=== PATIENT | female | born 1965 | race Caucasian/White ===

== ENCOUNTER 2024-05-13 04:30 | Emergency (ER) | payer BC, SELFPAY ==
[2024-05-13] VITALS (8 sets, daily range): BP systolic 121–155; BP diastolic 64–100; PULSE 62–77; RESP 18–20; TEMP 36.8; O2SAT 96–98; BMI 27.5
--- OUTSIDE RECORDS SUMMARY | 2024-05-13 04:32 | XMS_ITS | Clinical Summary ---
Author Organization [facility] Address [address] [place] [id number] Care Team Providers Care Maintenance Manager Name Role Phone Kathy Khan APRN C.N.P. Primary Care Pro vider Source Comments Patient records contain information from all sites at [facility]. For routine questions regarding patient records, call [phone] during business hours, M-F 8:00 AM - 5:00 PM Central Time. Record requests for emergency care only can be directed to [phone] at any time.[facility] Allergies Active Allergy Reactions Criticality Noted Date Comments Penicillins Hives (Reselect Reaction) 5 Medications acetaminophen (TylenoL) 500 mg tablet Take 2 tablets (1,000 mg total) by mouth every 6 (six) hours as needed for pain. 10/27/2023 Active zknbxnpg-fga-sp rrous sulfate (One Daily Multi-Vit w-Mineral) 4.5 mg iron tablet Take by mouth daily. 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 Immunizations Immunization Administration Dates Next Due HepA Adult 10/07/2013 HepB (discontinued) adolesce nt/high risk infant 01/16/2002,10/10/2001 HepB Adult 12/04/2002,01/16/2002,10/10/2001 HepB, Unspecified 12/04/2002 Influenza, Injectable, Quadrivalent 04/24/2023(D eferred: Parental decision) Td (Adult), adsorbed 01/05/2010 Td, (Adult) Unspecified 01/05/2010,04/10/1998 Tdap 04/24/2023(Deferred: Patient boo lewis) Family History Medical History Relation Name Comments Encephalitis Brother 1 Drug addict Brother 2 No Known Problems Daughter Anemia Father Diabetes Father Colon polyps Mother Diabetes Mother Fatty liver Mother Coronary artery disease Paternal Grandfather Breast cancer (cancer in one breast) Paternal Grandmot her No Known Problems Son 1 No Known Problems Son 2 No Known Problems Son 3 Relation Name Status Comments Brother 1 Brother 2 Daughter Father Mother Alive Paternal Grandfather Paternal Grandmother Son 1 Son 2 Son 3 Social History Tobacco Use Types Packs/Day Years Used Date Smoking Tobacco: Never Passive Smoke Exposure: Never Smokeless Tobacco: Never Tobacco Cessation:Counseling Given: Not Answered Alcohol Use Standard Drinks/Week Comments Yes 0 (1 standard drink = 0.6 oz pur e alcohol) Rare [facility] Utilities Answer Date Recorded In the past 12 months has e Patient Home Monitoring, gas, oil, or water Marqui threatened to shut off services in your home? No 05/30/2023 PHQ-2 Answer Date Recorded PHQ-2 Score 0 04/24/2023 Exercise Vital Sign Answer Date Recorde d On average, how many days pe r week do you engage in moderate to strenuous exercise (like a brisk walk)? 7 days 05/30/2023 On average, how many minutes do you engage in exercise at this level? 60 min 05/30/2023 Hunger Vital Sign Answer Date Recorded Within the past 12 months, y ou worried that your food would run out before you got the money to buy more. Never true 05/30/19 24 Within the past 12 months, t he food you bought just didn't last and you didn't have money to get more. Never true 05/30/2023 PRAPARE - Transportation Answer Date Re corded In the past 12 months, has l ack of transportation kept you from medical appointments or from getting medications? No 07/2023 In the past 12 months, has l ack of transportation kept you from meetings, work, or from getting things needed for daily living? No 05/30/2023 Nutrition Answer Date Recorded On average, how many serving s of fruits and vegetables do you eat per day (serving size is equal to 1 cup or approximately the size of a tennis ball)? 0-2 05/30/2023 Dental Answer Date Recorded Dental: Regular Dentist Yes 05/30/19 Employment Answer Date Recorded Employment status Employed and actively working without restrictions 05/30/2023 Housing Stability Answer Date Recorded What is your living situation today? I have a [facility] place to live 05/30/2023 Comments No Sex and Gender Information Value Date Recorded Sex Assigned at Female 05/30/2023 1:55 PM SCHEDULING ASSISTANT Legal Sex Female 8:18 AM SCHEDULING ASSISTANT Gender Identity Female 05/30/2023 1:55 PM SCHEDULING ASSISTANT Sexual Orientation Straight 05/30/2023 1: 55 PM SCHEDULING ASSISTANT Last Filed Vital Signs Vital Sign Reading Time Taken Comments Blood Pressure 130/82 12/05/2023 8:41 AM CDT Pulse 71 12/11/2023 9:49 AM CDT Temperature 36.8 C (98.2 F) 12/11/2023 9:49 AM CDT Respiratory Rate 20 12/05/2023 8:41 AM CDT Oxygen Saturation 96% 12/11/2023 9:49 AM CDT Inhaled Oxygen Concentration - - Weight 70.8 kg (156 lb 1.4 oz) 11/30/2023 11:09 AM CDT Height 162.6 cm (5' 4) 11/16/2023 8:08 AM CDT Body Mass Index 26.79 11/16/2023 8:08 AM CDT Plan of Treatment Health Maintenance Due Date Last Done Comments CT Colonography 1964 Cologuard 1965 HIV Screening 1965 Hepatitis C Screening 1965 DTaP,Tdap,and Td Vaccines (1 - Tdap) 01/06/2010 01/05/2010, 01/05/2010, 04/10/1998 Pneumococcal vaccine (50+ years) (1 of 1 - PCV) 01/23/2014 Zoster Vaccines (1 of 2) 01/23/2014 COVID-19 Vaccine (1 - season) 2023 Influenza Vaccine (#1) 2023 Depression Screening (Annual PHQ-2) 03/27/2024 Mammogram 11/12/2024 11/13/2023, 08/0 03/2021, 03/28/2019, Additional history exists Fasting Glucose for Diabetes Screening 10/09/2026 10/10/2023, 04/24/2023, 02/27/2018, Additional history exists Cervical/Vaginal Cancer Screening 04/24/2028 04/24/2023, 04/24/2023, 02/27/2018, Additional history exists Lipid (Cholesterol) Screening 04/24/2028 04/24/2023, 03/01/2019, 10/02/2013 (Performed elsewhere) Colonoscopy 11/15/2028 11/16/2023, 03/12/2018 Colorectal Cancer Surveillance 11/15/2028 Hepatitis B Vaccines Completed 12/04/2002, 12/04/2002, 01/16/2002, Additional history exists IPV Vaccines Aged Out No longer eligi ble based on patient's age to complete this topic Procedures Procedure Name Priority Date/Time Associated Diagnosis Comments COLONOSCOPY Routine 11/16/2023 8:49 AM CDT Screening Colon Cancer Average Risk BI BREAST SCREENING BILATERAL WITH TOMOSYNTHESIS RAD - Routine (most inpatients and all outpatients) 11/13/2023 2:33 PM CDT Screening Mammogram Breast Cancer BASIC METABOLIC PANEL, S/P Routine 10/10/2023 4:10 PM CDT Carpal Tunnel Syndrome Right Preoperative Exam LIPID PANEL, S Routine 04/24/2023 3:43 PM SCHEDULING ASSISTANT Well Adult Examination Normal HPV WITH GENOTYPING, PCR, THINPREP Routine 04/24/2023 3:43 PM SCHEDULING ASSISTANT from Last 3 Months or Most Recently Relevant to Health Maintenance Results * BI Breast Screening Bilateral with Tomosynthesis (11/13/2023 2:33 PM CDT) Anatomical Region Laterality Modality Breast, Breast Imaging RST L OS, Breast Imaging ARZ LOS, Breast Imaging FLA LOS Bilateral Mammography Impressions 11/13/2023 3:34 PM CDT Negative. RECOMMENDATION: Screening as Clinically Appropriate ASSESSMENT: BI-RADS: 1: Negative. Narrative 11/13/2023 3:34 PM CDT EXAM: BI BREAST SCREENING BILATERAL WITH TOMOSYNTHESIS Current study was evaluated with a Computer Aided Detection (CAD) system. INDICATION: Screening mammogram. COMPARISON: Prior exam(s) were available and reviewed for comparison. DENSITY: b. There are scattered areas of fibroglandular density. FINDINGS: No findings of malignancy. No significant change since prior exam. Procedure Note Kasi Clayton M.D. - 11/13/2023 EXAM: BI BREAST SCREENING BILATERAL WITH TOMOSYNTHESIS Current study was evaluated with a Computer Aided Detection (CAD) system. INDICATION: Screening mammogram. COMPARISON: Prior exam(s) were available and reviewed for comparison. DENSITY: b. There are scattered areas of fibroglandular density. FINDINGS: No findings of malignancy. No significant change since priorexam. IMPRESSION: Negative. RECOMMENDATION: Screening as Clinically Appropriate ASSESSMENT: BI-RADS: 1: Negative. Kathy Khan APRN, C.N.P. IMG BI PROCEDURES Final Result * (ABNORMAL) Basic Metabolic Panel (10/10/2023 4:10 PM CDT) Potassium, P 3.9 3.6 - 5.2 mmol/L 10/10/2023 7:32 PM CDT NPRG Sodium, P 141 135 - 145 mmol/L 10/10/2023 7:32 PM CDT NPRG Chloride, P 104 98 - 107 mmol/L 10/10/2023 7:32 PM CDT NPRG Bicarbonate, P 26 22 - 29 mmol/L 10/10/2023 7:33 PM CDT NPRG Anion Gap, P 11 7 - 15 10/10/2023 7:32 PM CDT NPRG BUN (Blood Urea Nitrogen), P 19 6 - 21 mg/dL 10/10/2023 7:33 PM CDT NPRG Creatinine 0.58(L) 0.59 - 1.04 mg/dL 10/10/2023 7:33 PM CDT NPRG Estimated GFR (eGFR) >90 >=60 mL/min/BSA 10/10/2023 7:33 PM CDT NPRG Comment: Estimated GFR calculated using the 2020 CKD_EPI creatinine equation. Calcium, Total, P 9.7 8.6 - 10.0 mg/dL 10/10/2023 7:33 PM CDT NPRG Glucose, P 106 70 - 140 mg/dL 10/10/2023 7:33 PM CDT NPRG Blood (Blood, Venous) 10/10/2023 4:10 PM CDT 10/10/2023 7:05 PM CDT Kathy Khan APRN, C.N.P. LAB BLOOD ADD-ON Final Result [facility] [address] [place] [address], [place] NPRG [facility] [address] [place] [address] * (ABNORMAL) Lipid Panel (04/24/2023 3:43 PM SCHEDULING ASSISTANT) Triglycerides 231(H) mg/dL 04/24/2023 7:31 PM SCHEDULING ASSISTANT NPRG Comment: ----REFERENCE VALUE---- Normal: <150 mg/dL Borderline High: 150-199 mg/dL High: 200-499 mg/dL Very High: > or =500 mg/dL Cholesterol, Total 199 mg/dL 2023 7:31 PM SCHEDULING ASSISTANT NPRG Comment: ----REFERENCE VALUE---- Desirable: < 200 mg/dL Borderline High: 200 - 239 mg/dL High: > or = 240 mg/dL Cholesterol, LDL, Calculated 113 mg/dL 04/24/2023 7:31 PM SCHEDULING ASSISTANT NPRG Comment: ----REFERENCE VALUE---- Desirable: <100 mg/dL Above Desirable: 100-129 mg/dL Borderline High: 130-159 mg/dL High: 160-189 mg/dL Very High: >=190 mg/dL ----ADDITIONAL INFORMATION---- LDL cholesterol calculated using the Parrish/NIH equation. Cholesterol, HDL 46(L) >=50 mg/dL 04/24/19 7:31 PM SCHEDULING ASSISTANT NPRG Cholesterol, Non-HDL, Calculated 153 mg/dL 04/24/2023 7:31 PM SCHEDULING ASSISTANT NPRG Comment: ----REFERENCE VALUE---- Desirable: <130 mg/dL Above Desirable: 130-159 mg/dL Borderline High: 160-189 mg/dL High: 190-219 mg/dL Very High: > or =220 mg/dL Fasting (8 HR or more) No 04/24/2023 7:09 PM SCHEDULING ASSISTANT NPRG Blood (Blood, Venous) 04/24/2023 3:43 PM SCHEDULING ASSISTANT 04/24/2023 7:09 PM SCHEDULING ASSISTANT Kathy Khan APRN, C.N.P. LAB BLOOD ADD-ON Final Result [facility] [address] [place] [address], [facility] NPRG [facility] [address] [place] [address] * HPV with Genotyping, PCR, ThinPrep (04/24/2023 3:43 PM SCHEDULING ASSISTANT) [facility] HPV with Genotyping, ThinPrep, PCR Negative Negative 04/25/2023 3:14 PM SCHEDULING ASSISTANT MKTO Comment: Negative for high risk HPV by nucleic acid amplification. The following high risk HPV types were not detected: 16, 18, 31, 33, 35, 39, 45, 51, 52, 56, 58, 59, 66, and 68 This result does not rule out HPV in the patient, as the sensitivity of the test depends on the timing of the specimen collection and the quality of the specimen. Result should be correlated with patient's history, clinical presentation, and REGISTRY NP cytology report. 04/24/2023 3:43 PM SCHEDULING ASSISTANT 04/25/2023 6:11 AM SCHEDULING ASSISTANT Kathy Khan APRN, C.N.P. LAB MICROBIOLOGY - GENERAL ORDERABLES Final Result [facility] [address] [place] [address], [facility] MKTO [address] [address] from Last 3 Months or Most Recently Relevant to Health Maintenance Insurance [employer] Advance Directives For more information, please contact: [phone] * Full Code (Latest Code Status on File) Date Activated Date Inactivated Comments 11/16/2023 7:44 AM 11/17/2023 5:49 AM Question Answer Comments Full Code: Not Discussed Due to: Patient not available * Full Code Date Activated Date Inactivated Comments 03/12/2018 12:49 PM 03/12/2018 4:12 PM Question Answer Comments Full Code: Not Discussed Due to: Not medically appropriate Care Teams Maintenance Manager Relationship Specialty Start Date End Date Kathy Khan APRN, C.N.P. [address] [place], [place] [id number] PCP - General Family Medicine 01/18/18
--- OUTSIDE RECORDS SUMMARY | 2024-05-13 04:32 | XMS_ITS | Continuity of Care Document ---
Author Organization [place] - [facility] [place] [facility] Address [address] [place] [id number] Assessment Encounter Date Assessment Date Assessment LastModified by Organization Details LastModified Time 05/02/2024 05/02/2024 Informed the patient of her diagnosis as detailed down below. At this time she was informed that in regards to her stress reaction this has responded very well with the use of her CAM boot and she will be allowed to return to normal shoegear at this time. She was informed that she likely developed this stress response secondary to compensation regarding her ankle instability that we will treat with PT after some initial treatment (Eleuterio, referral sent today). Additionally I recommended that the patient discuss with her PCP regarding undergoing a bone scan at this time secondary to evidence of osteopenia on radiographs. Will be seen back a few weeks after PT for a recheck. [email or web address] Not available 05/03/2024 12:01:30 Plan of Treatment Reminders Order Date Submit Date Provider Last Modified By Organization Details Last Modified Time Details Appointments None record ed. Lab None record ed. Referral None record ed. Procedures None record ed. Surgeries None record ed. Imaging None record ed. Medication Orders None record ed. Patient TargetsNo targets recorded. Patient InstructionsNo instructions recorded. Reason for Referral None Reported. Results Created Date Observation Date Name Description Value Unit Range Abnormal Flag Note LastModifiedBy Organization Detail LastModifiedTime 04/19/19 25 XR, foot, 3 or more view No observ ation record ed. [email or web address] [place] [facility] [address] [place] [address], [place], [address], 04/19/2024 10:53:32 04/19/19 25 XR, ankle , 2 view No observ ation record ed. [email or web address] [place] [facility] [address], [place], [address], 04/19/2024 10:54:06 Result Notes None recorded. 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 Medical Equipment None Reported. Allergies Allergen ID Allergen Name Allergen Category Reaction Reaction Severity Criticality Documentation Date Start Date Code Code System Note Provider Name and Address Organization Details Recorded Time 24193 Penicilli n Not available Not available Not available Not available 05/31/2022 98342 RxNorm Comme nt: React ion Class : Aller gy Al lergy Ident ifier : 3 All ergy Categ ory: Aller gy Categ ories Iden tifie r Assig keisha Autho rity: [address] _[place]_F [place] ; Not Available [facility] 3 08:52:25 Medications Name Sig Start Date Stop Date Status Note LastModified by Organization Details LastModified Time mupirocin 2 % topical ointment active Not Available Not Available Not Available oxycodone 5 mg tablet active Not Available Not Available No t Available peg 3350-electro lytes 236 gram-22.74 gram-6.74 gram-5.86 gram solution active Not Available Not Available Not Available Vitals None Recorded Social History None recorded. Functional Status None recorded. Mental Status None recorded. Family History Nothing Reported. Medical History No medical history recorded. Gynecological HistoryNo gynecological history recorded. Obstetrics History GPAL:G 0 P 0 0 0 0 Past Encounters Encounter ID Performer Location Encounter Start Date Encounter Closed Date Diagnosis/Indication Diagnosis SNOMED-CT Code Diagnosis ICD10 Code Diagnosis Note [id number] Mayo Salazar DPM [place] [facility] [address] [place] [phone] 04/18/2024 15:27:51 04/19/2024 11:56:15 Stress fracture of metatarsal bone of right foot [id number] 2615930 M84.374A Chronic an kle instability 634805732 M25.371 Osteopenia 145316584 M85 .879 [id number] Mayo Salazar DPM [place] [facility] [address] [place] [phone] 05/02/2024 15:53:11 05/03/2024 12:48:52 Chronic ankle instability 855742559 M25.371 Osteopenia 665115644 M85 .879 Health Concerns Section Related Observation LastModified by Organization Detai ls LastModified Time None Recorded Concern Status LastModified by Organization Details LastModified Time None Recorded Payers Encounter Date Sequence Insurance Name Policy Number Policy Main Covered Member ID Main Member ID Guarantor Name 05/02/2024 1 [facility] Chloé Sanchez [id number] Chloé Sanchez Notes Date Note Type Note Provider Name and Address Organization Details Recorded Time 05/02/2024 text/html Patient is a 59 year old female established patient who presents to clinic today for a recheck of right sided foot pain. The patient was previously informed about her diagnosis of chronic ankle instability in addition to the start of a stress fracture to the 4th metatarsal base. She was given a CAM boot to wear at home and she mentions that she has noticed a reduction in foot pain since her initial symptoms with the use of the CAM boot. Presents today for further discussion. Mayo Salazar GILMA [address] [place], [address], [facility] 05/03/2024 12:01:36 OBGyn Episode No OBEpisode recorded.
--- OUTSIDE RECORDS SUMMARY | 2024-05-13 04:32 | XMS_ITS | Clinical Summary ---
Author Organization [facility] Address [place], [place] [address] Care Team Providers Care Elastic Tape Inserter Name Role Phone Pcp, No Primary Care Provider Unavailabl e Allergies Active Allergy Reactions Criticality Noted Date Comments Penicillins Hives 06/16/2006 Medications ibuprofen (ADVIL; MOTRIN) 800 mg tabletIndicati ons:Hallux valgus, right Take 1 tablet by mouth 3 times daily with meals. 40 tablet 1 9 Active HYDROcodone-ac etaminophen, 5-325 mg, (NORCO) per tabletIndicati ons:Hallux valgus, right Take 1-2 tablets by mouth every 4 hours if needed for Pain Max acetaminophen dose: 4000 mg in 24 hrs. 30 tablet 9 Active Surgical ShoeIndication s:Hallux valgus, right For home use. 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 Pain in joint, site unspecified 06/16/2006 Immunizations Name Administration Dates Next Due Hepatitis A (Adult) 10/07/2013 Hepatitis B (Adult) 12/04/2002,01/16/2002,2001 Td (Age >=7 Years) 01/05/2010,04/10/1998 Family History Medical History Relation Name Comments Blood Disease Father SIDEROBLASTIC ANEMIA Diabetes Father Heart Disease Paternal Grandfather Cancer-breast Paternal Grandmother Diabetes Paternal Grandmother Relation Name Status Comments Brother 1 Alive Brother 2 Alive Daughter Alive Father Maternal Grandfather Maternal Grandmother Mother Alive Paternal Grandfather Paternal Grandmother Son 1 Alive Son 2 Alive Son 3 Alive Social History Tobacco Use Types Packs/Day Years Used Date Smoking Tobacco: Never Smokeless Tobacco: Never Alcohol Use Standard Drinks/Week Comments Yes 0 (1 standard drink = 0.6 oz pur e alcohol) rare Comments No Sex and Gender Information Value Date Recorded Sex Assigned at Not on file Legal Sex Female 5:22 AM AGRICULTURAL EXTENSION OFFICER Gender Identity Not on file Sexual Orientation Not on file Occupation Industry Job Start Date Job End Date TANIYA Not on file Not on file Not on file Not on file Not on file Not on file Not on file Obstetrics History Para Term AB IAB SAB Ectopic Multiple Livin g Live Births 4 4 4 Date Outcome GA Total Labor Labor/2nd/3rd Weight Sex Type Anes PTL Tracie A1 A5 Name Clin Para Para Para Para Last Filed Vital Signs Vital Sign Reading Time Taken Comments Blood Pressure 116/72 04/10/2018 1:10 PM AGRICULTURAL EXTENSION OFFICER Pulse 70 04/10/2018 1:10 PM AGRICULTURAL EXTENSION OFFICER Temperature 36.4 C (97.6 F) 04/10/2018 12:10 PM AGRICULTURAL EXTENSION OFFICER Respiratory Rate 16 04/10/2018 1:10 PM AGRICULTURAL EXTENSION OFFICER Oxygen Saturation 99% 04/10/2018 1:10 PM AGRICULTURAL EXTENSION OFFICER Inhaled Oxygen Concentration - - Weight 78 kg (171 lb 14.4 oz) 04/10/2018 9:30 AM AGRICULTURAL EXTENSION OFFICER Height 162.6 cm (5' 4.02) 04/10/2018 9:30 AM CS T Body Mass Index 29.49 04/10/2018 9:30 AM AGRICULTURAL EXTENSION OFFICER Plan of Treatment Health Maintenance Due Date Last Done Comments Tdap 01/23/1975 Depression screening for age 12+ 1976 HIV for age 15-65 01/23/1979 BMI (ht and wt on same day) for age 18+ 01/23/1982 Hepatitis C screening for ag e 18-79 01/23/1982 Colonoscopy through age 75 01/23/2009 Pneumococcal series for age 50+ (1 of 1 - PCV) 01/23/2014 Zoster (shingles) series for age 50+ (1 of 2) 01/23/2014 Mammogram for age 45-75 10/07/2014 10/08/19 14, 10/01/2012, 10/01/2012, Additional history exists Pap test for age 21-65 10/02/2015 3, 10/01/2012, 09/26/2011, Additional history exists Lipids for age 45-75 10/02/2018 10/02/2013, 09/21/2011, 09/13/2010 (Postponed) Tetanus booster 01/06/2020 01/05/2010, 04/10/1998 COVID-19 vaccine series ( - 2023-25 season) 2023 Influenza for age 50-64 11/26/2023 RSV vaccine for adults or (1 - 1-dose 75+ series) 01/23/2039 Medical Devices Implanted Type Area Publications Production Supervisor Device Identifier Shelf Expiration Date Model / Serial / Lot Screw Bone 3.0x16mm Mini Headed - [id number] Implanted:Qty : 2 on 04/10/2018 by Jf Franco DPM at [facility]Scre[employer] s [employer] Plates Right: Foot [employer] [id number] / / 2.5mm Headed Screw Implanted:Qty : 1 on 02/13/2018 by Jf Franco DPM at [facility] Left: [employer] [id number] / / 3.0mm Headed Screw Implanted:Qty : 1 on 02/13/2018 by Jf Franco DPM at [facility] Left: Foot [employer] [id number] / / Explanted Type Area Publications Production Supervisor Device Identifier Shelf Expiration Date Model / Serial / Lot K-Wire 3.0mm [employer]-Thrd - [id number] Explanted:Qty : 2 on 04/10/2018 by Jf Franco DPM at [facility]Screw s & Plates Right: [employer] [id number] / / Procedures Procedure Name Priority Date/Time Associated Diagnosis Comments XR MAMMO BILAT SCREEN FFDM (IA) Routine 10/07/2013 8:37 AM CDT Other screening mammogram LIPID PANEL Routine 10/02/2013 8:04 AM CDT Lipid screening CLOTH MERCERIZER OPERATOR THIN PREP PAP SCREEN IMAGED Routine 10/01/2012 2:41 PM CDT Pap smear for cervical cancer screening from Last 3 Months or Most Recently Relevant to Health Maintenance Results * XR MAMMO BILAT SCREEN FFDM (10/07/2013 8:37 AM CDT) Anatomical Region Laterality Modality BREASTS, Breast Left, Breast Right Bilateral Mammography Impressions 10/08/2013 7:31 AM CDT There is no radiographic evidence for malignancy. Recommend annual mammograms. A lay language report of this examination will be provided to the patient. MAMMOGRAM ASSESSMENT: ACR 2 Benign Narrative 10/08/2013 7:31 AM CDT XR MAMMO BILAT SCREEN FFDM [G0202.0] CLINICAL HISTORY: This is an asymptomatic 48 y.o. patient. INDICATION FOR EXAM: Mammogram Screening. TECHNIQUE: CC & MLO views were obtained. This digital study was evaluated with the assistance of Computer-Aided Detection. COMPARISON FILMS: Yes 10/01/12 [facility] DIAGNOSTIC IMAGING FINDINGS: Mammographically, the breast tissue is heterogeneously dense, which could obscure detection of small masses (approximately 51% - 75% glandular). No suspicious masses or microcalcifications. Benign appearing asymmetry within both breasts. Procedure Note Sudhir Lara MD - 10/08/2013 XR MAMMO BILAT SCREEN FFDM [G0202.0] CLINICAL HISTORY: This is an asymptomatic 48 y.o. patient. INDICATION FOR EXAM: Mammogram Screening. TECHNIQUE: CC & MLO views were obtained. This digital study was evaluatedwith the assistance of Computer-Aided Detection. COMPARISON FILMS: Yes 10/01/12 [facility] DIAGNOSTIC IMAGING FINDINGS: Mammographically, the breast tissue is heterogeneously dense,which could obscure detection of small masses (approximately 51% - 75%glandular). No suspicious masses or microcalcifications. Benignappearing asymmetry within both breasts. IMPRESSION: There is no radiographic evidence for malignancy. Recommendannual mammograms. A lay language report of this examination will be provided to the patient. MAMMOGRAM ASSESSMENT: ACR 2 Benign Tru Johnson MD MAMMO Final Result * (ABNORMAL) LIPID PANEL (10/02/2013 8:04 AM CDT) CHOLESTEROL,TOTAL 248(H) 100 - 199 mg/dL 10/02/2013 9:38 AM CDT [facility] TRIGLYCERIDES 190(H) <150 mg/dL 10/02/2013 9:38 AM CDT [facility] HDL CHOLESTEROL 52 >40 mg/dL 4 9:38 AM CDT [facility] NON-HDL CHOLESTEROL 196(H) <145 mg/dl 10/02/2013 9:38 AM CDT [facility] CHOL/HDL RATIO 4.77(H) <4.50 10/02/2013 9:38 AM CDT [facility] LDL CHOLESTEROL 158(H) <=130 mg/dL 10/02/2013 9:38 AM CDT [facility] PATIENT STATUS FASTING 10/02/2013 9:38 AM CDT [facility] Blood specimen (specimen) BLOOD SPECIMEN / Unknown Venipuncture / Unknown 10/02/2013 8:04 AM CDT 10/02/2013 8:04 AM CDT Tru Johnson MD CHEMISTRY Final Result [facility] [address] [place] [address], [place] [phone] * CLOTH MERCERIZER OPERATOR THIN PREP PAP SCREEN IMAGED (10/01/2012 2:41 PM CDT) CYTOLOGY CYTOPATHOLOGY REPORT [facility] Status: Final Status [id number] CLINICAL INFORMATION Last Date of LMP :09/13/2012 Last Pap Date :09/26/2011 Last Pap Result :NIL ABN Wilson/Bx Past 5 YRS :None Hormone Usage :None Menstrual Status :Regular Periods Wilson/Bx done today :No Additional Information :None given HPV Request :HPV if ASCUS SPECIMEN SOURCE :Cervical/vaginal ThinPrep Vial, screening SPECIMEN ADEQUACY :Satisfactory for evaluation No endocervical component seen. INTERPRETATION/RES ULT Negative for intraepithelial lesion or malignancy (NIL) Non-Neoplastic Findings Hyperkeratosis Organisms Shift in fabricio suggestive of bacterial vaginosis EDUCATIONAL NOTES AND SUGGESTIONS For technical reasons this ThinPrep Pap could not be screened by the Sharepoint Application Developer so it was manually screened. Cytology 1st Screener :cam Signed by : Jonathan Dorsey M.D. This specimen was screened by the FDA approved ThinPrep Imaging System and manually reviewed. NOTE: The Pap test is a screening technique, not a diagnostic procedure. It is used primarily to screen for squamous cancers and precursor lesions. Published studies have shown that it is subject to both false negative and false positive results. The pap test should not be used as the sole means to diagnose or exclude pre-malignant and malignant lesions. COLLECTED:10/01/12 ACCESSIONED: 10/02/12 SIGNED: 10/05/12 [facility] P[facility] [place] CODE NIL [facility] Tissue specimen (specimen) (Cervical/Vagina l) 10/01/2012 2:41 PM CDT 10/01/2012 2:39 PM CDT Tru Johnson MD PATHOLOGY/CYTOLOGY Final Resul t [facility] INTERNAL ZIP [id number] [place] [id number] from Last 3 Months or Most Recently Relevant to Health Maintenance Insurance [facility] NON-VA-ITS BLUE CROSS OF NON-VA-ITS Advance Directives * Full Code (Latest Code Status on File) Date Activated Date Inactivated Comments 04/10/2018 8:34 AM 04/10/2018 3:23 PM * Full Code Date Activated Date Inactivated Comments 02/13/2018 6:54 AM 02/13/2018 1:00 PM Care Teams Elastic Tape Inserter Relationship Specialty Start Date End Date Pcp, No . PCP - General 02/13/18
--- OUTSIDE RECORDS SUMMARY | 2024-05-13 04:32 | XMS_ITS | Continuity of Care Document ---
Author Organization ID - [facility] [place] Office Address [address] [place] [phone] Assessment Encounter Date Assessment Date Assessment LastModified by Organization Details LastModified Time 04/18/2024 04/18/2024 Informed the patient of her diagnosis as detailed down below. At this time she was informed that she has a possible stress fracture to the right 4th metatarsal and I would recommend that she wears a short pneumatic CAM boot (non custom, pre fabricated, dispensed today by our clinic) for protected ambulation. She was informed that she likely developed this stress response secondary to compensation regarding her ankle instability that we will treat with PT after some initial treatment ([place]). Additionally I recommended that the patient discuss with her PCP regarding undergoing a bone scan at this time secondary to evidence of osteopenia on radiographs. [email or web address] Not available 04/19/2024 10:56:08 Plan of Treatment Reminders Order Date Submit Date Provider Last Modified By Organization Details Last Modified Time Details Appointments None record ed. Lab None record ed. Referral None record ed. Procedures None record ed. Surgeries None record ed. Imaging XR, foot, 3 or more view 025 04/19/19 25 [facility], [address] [place] [address], [phone], 5 11:56:15 XR, ankle, 2 view 025 04/19/19 25 [facility], [address] [place] [address], [phone], 5 11:56:16 Medication Orders None record ed. Patient TargetsNo targets recorded. Patient InstructionsNo instructions recorded. Reason for Referral None Reported. Results Created Date Observation Date Name Description Value Unit Range Abnormal Flag Note LastModifiedBy Organization Detail LastModifiedTime 04/19/19 25 XR, foot, 3 or more view No observ ation record ed. [address] [place], [address], 04/19/2024 10:53:32 04/19/19 25 XR, ankle , 2 view No observ ation record ed. [address] [place], [address], 04/19/2024 10:54:06 Result Notes None recorded. 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; Original Code: 015552758 Original Codesystem : SNOMED CT Classif ication: Medical Co nfirmation Status: Confirmed Not Available [facility] 3 08:52:01 Plantar fascial fibromato sis 20938752 Active 2013 Plantar Fasciitis; Original Code: 728.71 Matthieu ginal Codesystem : ICD-9-CM C lassificat ion: Medical Co nfirmation Status: Confirmed Not Available [facility] 3 08:52:01 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 Procedures Surgical History None recorded. Imaging Results Imaging Date Name Status LastModified by Organiz ation Details LastModified Time 04/19/2024 XR, foot, 3 or more view completed [address] [place] [address] [address] [place], [address], 04/19/2024 10:53:32 04/19/2024 XR, ankle, 2 view completed [address] [place] [address] [address] [place], [id number], 04/19/2024 10:54:06 Procedure Notes None recorded. Medical Equipment None Reported. Allergies Allergen ID Allergen Name Allergen Category Reaction Reaction Severity Criticality Documentation Date Start Date Code Code System Note Provider Name and Address Organization Details Recorded Time 21899 Penicilli n Not available Not available Not available Not available 05/31/2022 99541 RxNorm Comme nt: React ion Class : Aller gy Al lergy Ident ifier : 3 All ergy Categ ory: Aller gy Categ ories Iden tifie r Assig keisha Autho rity: [id number] _[place]_F [place] ; Not Available [facility] 08:52:25 Medications Name Sig Start Date Stop Date Status Note LastModified by Organization Details LastModified Time mupirocin 2 % topical ointment active Not Available Not Available Not Available oxycodone 5 mg tablet active Not Available Not Available No t Available peg 3350-electro lytes 236 gram-22.74 gram-6.74 gram-5.86 gram solution active Not Available Not Available Not Available Vitals Date Recorded Body height Body mass index (BMI) Body weight Provider Name and Address Organization Details Last Updated DateTime 04/18/2024 162.56 cm 27.5 kg/m2 73025.78 g Ayaka Perez [place] - [facility] 04/18/2024 15:36:44 Social History None recorded. Functional Status None recorded. Mental Status None recorded. Family History Nothing Reported. Medical History No medical history recorded. Gynecological HistoryNo gynecological history recorded. Obstetrics History GPAL:G 0 P 0 0 0 0 Past Encounters Encounter ID Performer Location Encounter Start Date Encounter Closed Date Diagnosis/Indication Diagnosis SNOMED-CT Code Diagnosis ICD10 Code Diagnosis Note [id number] Mayo Salazar, DPPhilip [place] [facility] [address] [place] [address] [place] [address] 04/18/2024 15:27:51 04/19/2024 11:56:15 Stress fracture of metatarsal bone of right foot 4709334758 8493567 M84.374A Chronic an kle instability 943381559 M25.371 Osteopenia 856705529 M85 .879 Health Concerns Section Related Observation LastModified by Organization Detai ls LastModified Time None Recorded Concern Status LastModified by Organization Details LastModified Time None Recorded Payers Encounter Date Sequence Insurance Name Policy Number Policy Main Covered Member ID Main Member ID Guarantor Name 04/18/2024 1 [facility] Chloé Sanchez [id number] Chloé Sanchez Notes Date Note Type Note Provider Name and Address Organization Details Recorded Time 04/18/2024 text/html Patient is a 59 year old female new patient who presents to clinic today for evaluation of right foot pain. 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 Endorses that she has started experiencing sharper pain this last week and presents today for further cares. Mayo Salazar, GILMA [address] [place], [address], [facility] - [facility] 04/19/2024 10:56:32 OBGyn Episode No OBEpisode recorded.
--- OUTSIDE RECORDS SUMMARY | 2024-05-13 04:32 | XMS_ITS | Data Portability ---
Author Organization [place] - [facility] [employer] Address [address] [place] [address] Assessment Encounter Date Assessment Date Assessment LastModified [...] treat with PT after some initial treatment ([place]). Additionally I recommended that the patient discuss with her PCP regarding undergoing a bone scan at this time secondary to evidence of osteopenia on radiographs. [email or web address] Not available 04/19/2024 10:56:08 05/02/2024 05/02/2024 Informed the patient of her [...] few weeks after PT for a recheck. [email or web address] Not available 05/03/2024 12:01:30 Plan of Treatment Reminders Order Date Submit Date Provider Last Modified By Organization Details Last Modified Time Details Appointments None record ed. Lab None record ed. Referral None record ed. Procedures None record ed. Surgeries None record ed. Imaging XR, foot, 3 or more view 025 04/19/19 25 [facility], [address] [place] [address], [phone], 5 11:56:15 XR, ankle, 2 view 025 04/19/19 25 [facility], [address] [place] [address], [phone], 5 11:56:16 Medication Orders None record ed. Patient TargetsNo targets recorded. Patient InstructionsNo instructions recorded. Reason for Referral None Reported. Results Created Date Observation Date Name Description Value Unit Range Abnormal Flag Note LastModifiedBy Organization Detail LastModifiedTime 04/19/19 25 XR, foot, 3 or more view No observ ation record ed. [address], [address], 04/19/2024 10:53:32 04/19/19 25 XR, ankle , 2 view No observ ation record ed. [address], [address], 04/19/2024 10:54:06 Result Notes None recorded. Problems Name Problem SNOMED Code Status Onset Date Resolution Date Notes Provider Name and Address Organization Details Recorded Time Toe joint rigid 408150472 Active 2020 Toe joint rigid; Original Code: 966906645 Original Codesystem : SNOMED CT Classif ication: Medical Co nfirmation Status: Confirmed Not Available [facility] 3 08:52:01 Plantar fascial fibromato sis 02064670 Active 2013 Plantar Fasciitis; Original Code: 728.71 Matthieu ginal Codesystem : ICD-9-CM C lassificat ion: Medical Co nfirmation Status: Confirmed Not Available [facility] 3 08:52:01 Congenita l anomaly of foot 139391766 Active 2013 Accessory Navicular Bone of Foot; Original Code: 755.67 Matthieu ginal Codesystem : ICD-9-CM C lassificat ion: Medical Co nfirmation Status: Confirmed Not Available [facility] 3 08:52:02 Obesity 936705469 Active 2016 Obesity; Original Code: 6027448747 Original Codesystem : SNOMED CT Classif ication: Medical Co nfirmation Status: Probable Not Available [facility] 3 08:52:02 Problem Notes None recorded. Procedures Surgical History None recorded. Imaging Results Imaging Date Name Status LastModified by Organiz ation Details LastModified Time 04/19/2024 XR, foot, 3 or more view completed [address] [place], [address], 04/19/2024 10:53:32 04/19/2024 XR, ankle, 2 view completed [address] [place], [address], 04/19/2024 10:54:06 Procedure Notes None recorded. Medical Equipment None Reported. Allergies Allergen ID Allergen Name Allergen Category Reaction Reaction Severity Criticality Documentation Date Start Date Code Code System Note Provider Name and Address Organization Details Recorded Time 34494 Penicilli n Not available Not available Not available Not available 05/31/2022 14776 RxNorm Comme nt: React ion Class : Aller gy Al lergy Ident ifier : 3 All ergy Categ ory: Aller gy Categ ories Iden tifie r Assig keisha Autho rity: [id number] _[place]_F [place] ; Not Available [facility] 3 08:52:25 Medications Name Sig Start [...] Updated DateTime 04/18/2024 162.56 cm 27.5 kg/m2 03423.78 g Ayaka Perez [place] - [facility] 04/18/2024 [...] SNOMED-CT Code Diagnosis ICD10 Code Diagnosis Note [id number] EVGENY Hampton [employer] Office [address] [place] [address] 04/18/2024 15:27:51 04/19/2024 11:56:15 Stress fracture of metatarsal bone of right foot 1374375751 9188376 M84.374A Chronic an kle instability 348837875 M25.371 Osteopenia 426800171 M85 .879 62604 EVGENY Hampton [employer] [facility] [address] [place] [address] 05/02/2024 15:53:11 05/03/2024 12:48:52 Chronic ankle instability 577732556 M25.371 Osteopenia 165133313 M85 .879 Health Concerns Section Related Observation LastModified by Organization Detai ls LastModified Time None Recorded Concern Status LastModified by Organization Details LastModified Time None Recorded Advance Directives Directive None Recorded Payers Encounter Date Sequence Insurance Name Policy Number Policy Main Covered Member ID Main Member ID Guarantor Name 04/18/2024 1 SONDRA Sanchez [id number] Chloé Sanchez 05/02/2024 1 SONDRA Sanchez [id number] Chloé Sanchez Notes Date Note Type Note Provider Name and Address Organization Details Recorded Time 04/18/2024 text/html Patient is a 59 year old female new patient who presents to clinic today for evaluation of right foot pain. 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 Endorses that she has started experiencing sharper pain this last week and presents today for further cares. Mayo Salazar, GILMA [address] [place], [address], [facility] - [facility] 04/19/2024 10:56:32 05/02/2024 text/html Patient is a 59 year [...] Presents today for further discussion. Mayo Salazar DPM [address] [place], [address], [facility] - [facility] 05/03/2024 12:01:36 OBGyn Episode No OBEpisode recorded.
--- NOTE | 2024-05-13 04:58 | ED_ITS ---
HPI - Syncope General Date Seen: 05/13/24 Chief Complaint: Syncope/Fainted Stated Complaint: fainted Time Seen by Provider: 05/13/24 04:48 Source: patient, family and RN notes reviewed Mode of arrival: wheelchair Limitations: no limitations History of Present Illness HPI narrative: Patient is a 59-year-old female who presents here to the emergency room after being on OB in having a spell occur. She was sitting down, and then woke up, stiffened and passed out. No tonic clonic activity was noted, she reports that now she is back to baseline just feeling a little tired. She remembers in the past she did have an episode of passing out, and today she admits to not drinking a lot of fluids, and her urine is very dark. She was watching her Daughters water break when this occurred. No significant past medical history, denies any cardiac or lung problems, no history of anemia. No family history of anyone having sudden , recurrent syncope. Cardiovascular issues No history of chest pain, exertional dyspnea or exertional chest pain, leg swelling, recent trips, hemoptysis, fevers chills, sickness, headaches, vomiting nausea diarrhea, dysuria frequency, rashes. complaint: loss of consciousness and collapsed Onset (ago): minute(s) Duration of episode: 1 -: minutes(s) Prodromal symptoms: none Witnessed: Yes - by Bystander Context: at rest and standing up Injuries sustained associated with event: none Current symptoms: lightheaded and nausea Related Data Home Medications ?Medication ?Instructions ?Recorded ?Confirmed No Known Home Medications 05/13/24 05/13/24 Allergies Allergy/AdvReac Type Severity Reaction Status Date / Time Penicillins Allergy Mild Hives Verified 05/13/24 04:42 Review of Systems Status of ROS: Reports: 10 or more systems reviewed and unremarkable except as noted in History and below Cardio: Reports: other (Patient able to walk 4 mi she says on the treadmill without stopping. No ) PFSH [facility] Medical History No significant past medical history Surgical History History of section ?Z98.891 - History of uterine scar from previous surgery (ICD-10) History of tubal ligation ?Z98.51 - Tubal ligation status (ICD-10) Social History Smoking Status: Never smoker Second hand tobacco smoke exposure: No How often do you have a drink containing alcohol: never AUDIT-C Alcohol total score: 0 Non-prescribed substance use: denies use Exam Narrative: Exam Narrative: On examination in room 5 she is in no apparent distress speaking to me normally she looks very pale, pupils equal round reactive to light there is no scleral icterus redness or TMs are normal her oropharynx is normal, her neck is supple full range of motion, cranial nerves 3-12 are normal is no lymphadenopathy anterior posterior chains there is no meningismus, chest is good air entry bilaterally with no wheezing crackles noted her heart sounds no clicks murmurs or gallops her abdomen is soft there is no guarding no organomegaly bowel sounds are normal she moves all extremities independently well with fine motor movements, that are normal bilaterally, her proximal distal muscle strength is normal skin reveals no petechiae rashes. They did do orthostatics and she promptly became nauseous, Const: Vital Signs, click to edit/add: Vital Signs - 24 hr 05/13/24 04:38 05/13/24 04:48 05/13/24 04:48 Temperature 98.2 F 98.2 F Pulse Rate Pulse Rate [Right Pulse Oximeter] 67 62 Pulse Rate [orthos tatic lying Pulse Oximeter] Pulse Rate [orthos tatic sitting Puls e Oximeter] Pulse Rate [orthos tatic standing Pul se Oximeter] Respiratory Rate 18 18 Blood Pressure Blood Pressure [Ri ght Upper Arm] 135/74 129/80 Blood Pressure [or thostatic lying Ri ght Arm] Blood Pressure [or thostatic sitting Right Arm] Blood Pressure [or thostatic standing Right Arm] Pulse Oximetry 98 98 98 Oxygen Delivery Me thod Room Air Room Air 05/13/24 05:04 05/13/24 05:05 05/13/24 05:19 Temperature Pulse Rate 70 Pulse Rate [Right Pulse Oximeter] Pulse Rate [orthos tatic lying Pulse Oximeter] 71 75 Pulse Rate [orthos tatic sitting Puls e Oximeter] 69 69 Pulse Rate [orthos tatic standing Pul se Oximeter] 75 71 Respiratory Rate 20 Blood Pressure 124/73 Blood Pressure [Ri ght Upper Arm] Blood Pressure [or thostatic lying Ri ght Arm] 121/64 155/100 H Blood Pressure [or thostatic sitting Right Arm] 123/74 123/74 Blood Pressure [or thostatic standing Right Arm] 155/100 H 121/64 Pulse Oximetry 96 Oxygen Delivery Me thod Documenting provider has reviewed patient's vital signs: yes Course Course ED Course: She is not truly orthostatic, with her measurements. By blood pressure. I wonder if this is more of a vasovagal thing, could not rule out a dysrhythmia but I think also that is unlikely. Potassium is borderline at 3.4, Reevaluation(s) Time of Reevaluation #1: 06:03 Reevaluation #1: Patient has received a full L of fluids, she feels better, she remains in sinus rhythm on the monitor. Her potassium returned little low we will give her both oral and IV bumps of this. I discussed with her, I think this is more of a vasovagal issue, she was clinically a little dry, and this was been borne out by her urine being concentrated, the other issue is her long QT syndrome, and I would recommend follow-up with Cardiology for a check. She has never before had an EKG, no family history to suggest that this is familial. Avoidance of QT prolonging medications such as Zofran and psychiatric medications is suggested. She did take a picture of the EKG show she can take it to her primary care physician. I explained to her the protocol is we will recheck her troponin, and her EKG if this is normal we will then let her go. She likely will be signed over to the oncoming ER physician. Time of Reevaluation #2: 06:45 Reevaluation #2: Patient feels good, and her daughter is having the baby as we speak, and she is requesting to leave the ER, we will do a troponin here quickly, she will still be in the hospital I think it is reasonable we let her go we will track her down it becomes positive, I went with over with her the discharge instructions. Vital Signs Vital signs: Initial Vital Signs Temperature 98.2 F 05/13/24 04:38 Temperature Source Temporal Artery Scan 05/13/24 04:38 Pulse Rate 67 05/13/24 04:38 Pulse Rhythm Regular 05/13/24 04:38 Pulse Strength 3+ Normal 05/13/24 04:38 Respiratory Rate 18 05/13/24 04:38 Blood Pressure 135/74 05/13/24 04:38 Blood Pressure Mean 94 05/13/24 04:38 Blood Pressure Position Sitting 05/13/24 04:38 Pulse Oximetry 98 05/13/24 04:38 Oxygen Delivery Method Room Air 05/13/24 04:38 Vital Signs Temperature 98.2 F 05/13/24 04:38 Pulse Rate 67 05/13/24 04:38 Respiratory Rate 18 05/13/24 04:38 Blood Pressure 135/74 05/13/24 04:38 Pulse Oximetry 98 05/13/24 04:38 Oxygen Delivery Method Room Air 05/13/24 04:38 Temperature 98.2 F 05/13/24 04:48 Pulse Rate 70 05/13/24 05:19 Respiratory Rate 20 05/13/24 05:19 Blood Pressure 124/73 05/13/24 05:19 Pulse Oximetry 96 05/13/24 05:19 Oxygen Delivery Method Room Air 05/13/24 04:48 Medications Administered Medications: Generic Name Dose Route Start Last Admin Trade Name Freq PRN Reason Stop Dose Admin Potassium Chloride 10 meq in 100 mls @ 100 mls/hr 05/13/24 05:49 05/13/24 05:53 Potassium Chloride IVPB 05/13/24 06:48 100 mls/hr ONCE ONE Administration Discontinued Medications Generic Name Dose Route Start Last Admin Trade Name Freq PRN Reason Stop Dose Admin Sodium Chloride 1,000 mls @ 1,000 mls/hr 05/13/24 05:00 05/13/24 05:56 0.9 % Sodium Chloride 1000 Ml IV 05/13/24 05:59 Infused .Q1H JOAQUIN Infusion Sodium Chloride 1,000 mls @ 1,000 mls/hr 05/13/24 05:00 05/13/24 05:02 0.9 % Sodium Chloride 1000 Ml IV 05/13/24 05:59 1,000 mls/hr .Q1H JOAQUIN Administration Lorazepam 0.5 mg 05/13/24 05:10 05/13/24 05:18 Lorazepam 2 Mg/Ml Inj IVP 05/13/24 05:11 0.5 mg ONCE ONE Administration Potassium Chloride 20 meq 05/13/24 05:48 05/13/24 05:52 Potassium Chloride 10 Meq Capsule Er PO 05/13/24 05:49 20 meq ONCE ONE Administration MDM - Syncope MDM Narrative Medical decision making narrative: Life-threatening differential diagnosis considered include: Cardiac arrhythmia, acute blood loss, and intracranial bleed. Other differential diagnosis include but are not limited to vasovagal syncope, orthostatic syncope, seizure, as well as other etiologies Patient presents so the spell, this most likely vasovagal or orthostatic, given history, I do not think this is seizure, there is no evidence of oropharyngeal biting, incontinence of stool or urine and no seizure-like activity. Possibility of dysrhythmia is entertain, we will add in magnesium level, and also the doing a troponin. D-dimer will also be done. We will give her 2 L of fluids. Her EKG does show that she has the possibility of long QT syndrome. With her nausea that she feels now when she sits up, QT prolonging agents should be avoided, so to use a little bit Ativan. Differential Diagnosis Differential diagnosis: Likely syncope due to orthostatic hypotension, vasovagal syncope, complete atrioventricular block, subarachnoid hemorrhage, pulmonary embolism and dehydration Medical Records Attestation: I reviewed the patient's medical records. Lab Data Attestation: I reviewed the patient's lab results. Labs: Lab Results 05/13/24 05/13/24 05/13/24 Range/Units 04:35 04:43 04:45 WBC 9.87 (4.50-11.00) K/uL RBC 4.42 (4.00-5.20) m/uL Hgb 13.6 (12.0-16.0) gm/dL Hct 40.4 (33.0-51.0) % MCV 91 (80-100) fL MCH 31 (26-34) pg MCHC 34 (32-36) gm/dL RDW Coeff of Gama 12.2 (11.5-15.5) % Plt Count 305 (140-440) K/uL Neut % (Auto) 37.0 L (42.0-72.0) % Lymph % (Auto) 51.9 H (20-44) % Morrill % (Auto) 9.3 (0.0-11.0) % Eos % (Auto) 1.0 (0.0-7.0) % Baso % (Auto) 0.5 (0.0-3.0) % Neut # (Auto) 3.70 (1.7-7.0) K/uL Lymph # (Auto) 5.10 H (0.90-2.90) K/uL Morrill # (Auto) 0.90 (0.00-0.90) K/UL Eos # (Auto) 0.10 (0.00-0.50) K/uL Baso # (Auto) 0.05 (0.00-0.30) K/uL Abs Immat Gran (auto) 0.03 (0.00-0.30) K/uL Imm/Tot Granulo (auto) 0.3 % D-Dimer Quant (PE/DVT) 0.25 (0.00-0.50) ug/ml Sodium 140 (135-149) mmol/L Potassium 3.4 L (3.6-5.1) mmol/L Chloride 107 (96-114) mmol/L Carbon Dioxide 25 (20-32) mmol/L Anion Gap 8 (7-15) mEq/L BUN 16 (7-30) mg/dL Creatinine 0.5 (0.5-1.5) mg/dL Estimated Creat Clear 103.32 Estimated GFR 107 ml/min Glucose 127 H (60-115) mg/dL Calcium 9.4 (8.4-10.6) mg/dL Magnesium 2.3 (1.5-2.6) mg/dL Troponin I < 0.01 L (0.01-0.04) ng/mL Urine Color (Yellow) Urine Appearance (Clear) Urine pH (5.0-8.5) Ur Specific Mansfield (1.000-1.030) Urine Protein (Negative) Urine Glucose (UA) (Negative) Urine Ketones (Negative) Urine Blood (Negative) Urine Nitrite (Negative) Urine Bilirubin (Negative) Urine Urobilinogen (0.2-1.0) Ur Leukocyte Esterase (Negative) Urine RBC (0-2) Urine WBC (0-5) Ur Squamous Epith Cells (None-Few) Urine Bacteria (None) Urine Mucus (None) Ethyl Alcohol < 0.00 L (0.01-0.03) % 05/13/24 Range/Units 04:48 WBC (4.50-11.00) K/uL RBC (4.00-5.20) m/uL Hgb (12.0-16.0) gm/dL Hct (33.0-51.0) % MCV (80-100) fL MCH (26-34) pg MCHC (32-36) gm/dL RDW Coeff of Gama (11.5-15.5) % Plt Count (140-440) K/uL Neut % (Auto) (42.0-72.0) % Lymph % (Auto) (20-44) % Morrill % (Auto) (0.0-11.0) % Eos % (Auto) (0.0-7.0) % Baso % (Auto) (0.0-3.0) % Neut # (Auto) (1.7-7.0) K/uL Lymph # (Auto) (0.90-2.90) K/uL Morrill # (Auto) (0.00-0.90) K/UL Eos # (Auto) (0.00-0.50) K/uL Baso # (Auto) (0.00-0.30) K/uL Abs Immat Gran (auto) (0.00-0.30) K/uL Imm/Tot Granulo (auto) % D-Dimer Quant (PE/DVT) (0.00-0.50) ug/ml Sodium (135-149) mmol/L Potassium (3.6-5.1) mmol/L Chloride (96-114) mmol/L Carbon Dioxide (20-32) mmol/L Anion Gap (7-15) mEq/L BUN (7-30) mg/dL Creatinine (0.5-1.5) mg/dL Estimated Creat Clear Estimated GFR ml/min Glucose (60-115) mg/dL Calcium (8.4-10.6) mg/dL Magnesium (1.5-2.6) mg/dL Troponin I (0.01-0.04) ng/mL Urine Color Yellow (Yellow) Urine Appearance Clear (Clear) Urine pH 6.0 (5.0-8.5) Ur Specific [place] >= 1.030 (1.000-1.030) Urine Protein Trace A (Negative) Urine Glucose (UA) Negative (Negative) Urine Ketones Negative (Negative) Urine Blood Negative (Negative) Urine Nitrite Negative (Negative) Urine Bilirubin Negative (Negative) Urine Urobilinogen 0.2 (0.2-1.0) Ur Leukocyte Esterase Negative (Negative) Urine RBC 0-2 (0-2) Urine WBC 0-2 (0-5) Ur Squamous Epith Cells Few (None-Few) Urine Bacteria Few A (None) Urine Mucus Moderate A (None) Ethyl Alcohol (0.01-0.03) % ECG Data Attestation: I personally reviewed and interpreted this ECG as follows: ECG interpretation date: 05/13/24 Prior ECG tracings: not available for review Interpretation: EKG shows normal sinus rhythm, there is a prolonged QT with a QT of 458 and a QTC of 483. QRS is normal Discharge Plan Discharge Clinical Impression: Vasovagal syncope, Dehydration, Acute hypokalemia, Long QT syndrome Patient Disposition: Home w/ Parent or Adult Condition: Improved Instructions: Heart Palpitations (ED), Dehydration (DC), Potassium Content of Foods List (ED), Syncope (DC) Additional Instructions: Maintain your hydration, recommend potassium rich foods, would also recommend evaluation by Cardiology for your long QT syndrome, but just means electrical activity of your heart is different. You have had this likely your entire life. It can also be familial. This can be tied to running a funny heart rhythms, avoidance of medications such as psychiatric medications along with nausea medications probably should be avoided. It least until you follow-up with Cardiology. Return here if issues with passing out, chest pain, shortness of breath, recurrent palpitations. Bottom line see your family practitioner and discuss this. Activity Level: Light activity Discharge Diet: Regular Prescriptions: No Action No Known Home Medications Follow Up/Referrals: Kathy Khan, SCIENCE FACULTY MEMBER [Primary Care Provider] - Stand Alone Forms: [email or web address] Info Instructions
[2024-05-13 04:59] LABS: Basophils Absolute Auto 0.05 K/uL (0.00-0.30); Basophils Percent Auto 0.5 % (0.0-3.0); Hematocrit 40.4 % (33.0-51.0); Hemoglobin* 13.6 gm/dL (12.0-16.0); Immature Granulocytes Abs Auto 0.03 K/uL (0.00-0.30); Immature Granulocytes Pct Auto 0.3 %; Lymphocytes Percent Auto 51.9 % (20-44); Mean Corpuscular HGB Conc 34 gm/dL (32-36); Mean Corpuscular Hemoglobin 31 pg (26-34); Mean Corpuscular Volume 91 fL (80-100); Monocytes Percent Auto 9.3 % (0.0-11.0); Platelet Count* 305 K/uL (140-440); RDW Coefficient of Variation % 12.2 % (11.5-15.5); Red Blood Count 4.42 m/uL (4.00-5.20); White Blood Count* 9.87 K/uL (4.50-11.00)
[2024-05-13] MEDS: 0.9 % SODIUM CHLORIDE 1000 ml 1,000 ML IV ×2 (05:01→05:02)
[2024-05-13 05:08] LABS: Appearance Urine Clear (Clear); Bilirubin Urine Negative (Negative); Blood Urine Negative (Negative); Color Urine Yellow (Yellow); Glucose Urine Negative (Negative); Ketones Urine Negative (Negative); Leukocyte Esterase Urine Negative (Negative); Nitrite Urine Negative (Negative); Protein Urine Trace (Negative); Specific Gravity Urine >= 1.030 (1.000-1.030); Urobilinogen Urine 0.2 (0.2-1.0)
[2024-05-13 05:11] LABS: RBC Urine 0-2 (0-2); WBC Urine 0-2 (0-5)
[2024-05-13 05:12] LABS: Bacteria Urine Few; Mucus Urine Moderate; Squamous Epithelial Cell Urine Few (None-Few)
[2024-05-13 05:13] LABS: Slide Review Reflex No
[2024-05-13 05:18] LABS: Chloride* 107 mmol/L (96-114); Sodium* 140 mmol/L (135-149)
[2024-05-13] MEDS: LORazepam 2 MG/ML inj 0.5 MG IVP (05:18)
[2024-05-13 05:19] LABS: Potassium* 3.4 mmol/L (3.6-5.1)
[2024-05-13 05:21] LABS: Blood Urea Nitrogen* 16 mg/dL (7-30); Creatinine* 0.5 mg/dL (0.5-1.5); Est. Creatinine Clearance* 103.32; Estimated Glomerular Filt Rate 107 ml/min
[2024-05-13 05:22] LABS: Magnesium* 2.3 mg/dL (1.5-2.6)
[2024-05-13 05:22] LABS: Anion Gap 8 mEq/L (7-15); Calcium* 9.4 mg/dL (8.4-10.6); Carbon Dioxide* 25 mmol/L (20-32); Glucose* 127 mg/dL (60-115)
[2024-05-13 05:32] LABS: Ethanol* < 0.00 % (0.01-0.03)
--- OUTSIDE RECORDS SUMMARY | 2024-05-13 05:32 | XMS_ITS | Clinical Summary ---
Author Organization [facility] Address [place], [place] [address] Care Team Providers Care Yard Brakeman Name Role Phone Pcp, No Primary Care [...] on file Legal Sex Female 5:22 AM [facility] Gender Identity Not on file Sexual Orientation [...] Comments Blood Pressure 116/72 04/10/2018 1:10 PM [facility] Pulse 70 04/10/2018 1:10 PM [facility] Temperature 36.4 C (97.6 F) 04/10/2018 12:10 PM [facility] Respiratory Rate 16 04/10/2018 1:10 PM [facility] Oxygen Saturation 99% 04/10/2018 1:10 PM [facility] Inhaled Oxygen Concentration - - Weight 78 kg (171 lb 14.4 oz) 04/10/2018 9:30 AM [facility] Height 162.6 cm (5' 4.02) 04/10/2018 9:30 AM CS T Body Mass Index 29.49 04/10/2018 9:30 AM [facility] Plan of Treatment Health Maintenance Due Date [...] series) 01/23/2039 Medical Devices Implanted Type Area Oil Inspector Device Identifier Shelf Expiration Date Model / Serial / Lot Screw Bone 3.0x16mm Mini Headed - [id number] Implanted:Qty : 2 on 04/10/2018 by Jf Franco DPM at [facility] Ortho Imp.,Screw s & Plates Right: Foot [employer] [id number] / / 2.5mm Headed Screw Implanted:Qty : 1 on 02/13/2018 by Jf Franco DPM at [facility] Left: Foot [employer] [id number] / / 3.0mm Headed Screw Implanted:Qty : 1 on 02/13/2018 by Jf Franco DPM at [facility] Left: Foot [employer] [id number] / / Explanted Type Area Oil Inspector Device Identifier Shelf Expiration Date Model / Serial / Lot K-Wire 3.0mm [employer] Non-Thrd - [id number] Explanted:Qty : 2 on 04/10/2018 by Jf Franco DPM at [facility] Ortho Imp.,Screw s & Plates Right: [employer] [id number] / / Procedures Procedure Name Priority Date/Time Associated Diagnosis Comments XR MAMMO BILAT SCREEN FFDM (IA) Routine 10/07/2013 8:37 AM CDT Other screening mammogram LIPID PANEL Routine 10/02/2013 8:04 AM CDT Lipid screening JOB HONER THIN PREP PAP SCREEN IMAGED Routine 10/01/2012 [...] of Computer-Aided Detection. COMPARISON FILMS: Yes 10/01/12 [facility] DIAGNOSTIC IMAGING FINDINGS: Mammographically, the breast tissue [...] of Computer-Aided Detection. COMPARISON FILMS: Yes 10/01/12 [facility] DIAGNOSTIC IMAGING FINDINGS: Mammographically, the breast tissue [...] - 199 mg/dL 10/02/2013 9:38 AM CDT [facility] TRIGLYCERIDES 190(H) <150 mg/dL 10/02/2013 9:38 AM CDT [facility] HDL CHOLESTEROL 52 >40 mg/dL 4 9:38 AM CDT [facility] NON-HDL CHOLESTEROL 196(H) <145 mg/dl 10/02/2013 9:38 AM CDT [facility] CHOL/HDL RATIO 4.77(H) <4.50 10/02/2013 9:38 AM CDT [facility] LDL CHOLESTEROL 158(H) <=130 mg/dL 10/02/2013 9:38 AM CDT [facility] PATIENT STATUS FASTING 10/02/2013 9:38 AM CDT [facility] Blood specimen (specimen) BLOOD SPECIMEN / Unknown Venipuncture / Unknown 10/02/2013 8:04 AM CDT 10/02/2013 8:04 AM CDT Tru Johnson MD CHEMISTRY Final Result [facility] [address] [place] [address], [place] [phone] * JOB HONER THIN PREP PAP SCREEN IMAGED (10/01/2012 2:41 PM CDT) CYTOLOGY CYTOPATHOLOGY REPORT [facility] Status: Final Status [id number] CLINICAL INFORMATION Last Date of LMP :09/13/2012 Last Pap Date :09/26/2011 Last Pap Result :NIL ABN [place]/Bx Past 5 YRS :None Hormone Usage :None Menstrual Status :Regular Periods [place]/Bx done today :No Additional Information :None given HPV Request :HPV if ASCUS SPECIMEN SOURCE :Cervical/vaginal ThinPrep Vial, screening SPECIMEN ADEQUACY :Satisfactory for evaluation No endocervical component seen. INTERPRETATION/RES ULT Negative for intraepithelial lesion or malignancy (NIL) Non-Neoplastic Findings Hyperkeratosis Organisms Shift in fabricio suggestive of bacterial vaginosis EDUCATIONAL NOTES AND SUGGESTIONS For technical reasons this ThinPrep Pap could not be screened by the Auto Glass Worker so it was manually screened. Cytology 1st [...] lesions. COLLECTED:10/01/12 ACCESSIONED: 10/02/12 SIGNED: 10/05/12 [facility] PAP [place] CODE NIL [facility] Tissue specimen (specimen) (Cervical/Vagina l) 10/01/2012 2:41 PM CDT 10/01/2012 2:39 PM CDT Tru Johnson MD PATHOLOGY/CYTOLOGY Final Resul t [facility] INTERNAL ZIP [id number] [place] [id number] from Last 3 Months or Most Recently Relevant to Health Maintenance Insurance [facility] [place] Advance Directives * Full Code (Latest Code Status on File) Date Activated Date Inactivated Comments 04/10/2018 8:34 AM 04/10/2018 3:23 PM * Full Code Date Activated Date Inactivated Comments 02/13/2018 6:54 AM 02/13/2018 1:00 PM Care Teams Yard Brakeman Relationship Specialty Start Date End Date Pcp, No . PCP - General 02/13/18
--- OUTSIDE RECORDS SUMMARY | 2024-05-13 05:32 | XMS_ITS | Clinical Summary ---
Author Organization [facility] Address [address] [place] [id number] Care Team Providers Care Educational Director Name Role Phone Kathy Khan APRN C.N.P. Primary Care Pro vider Source Comments Patient records contain information from all sites at [facility]. For routine questions regarding patient records, call [phone] during business hours, M-F 8:00 AM - 5:00 PM Central Time. Record requests for emergency care only can be directed to [phone] at any time.[facility] Allergies Active Allergy Reactions Criticality Noted Date Comments Penicillins Hives (Reselect Reaction) 5 Medications acetaminophen (TylenoL) 500 mg tablet Take 2 tablets (1,000 mg total) by mouth every 6 (six) hours as needed for pain. 10/27/2023 Active yxotyayx-mkw-ks rrous sulfate (One Daily Multi-Vit w-Mineral) 4.5 [...] = 0.6 oz pur e alcohol) Rare [facility] Utilities Answer Date Recorded In the past 12 months has e [employer], gas, oil, or water [employer] threatened to shut off services in your [...] your living situation today? I have a [facility] home place to live 05/30/2023 Comments No Sex and Gender Information Value Date Recorded Sex Assigned at Female 05/30/2023 1:55 PM BUILDINGS AND GROUNDS DIRECTOR Legal Sex Female 8:18 AM BUILDINGS AND GROUNDS DIRECTOR Gender Identity Female 05/30/2023 1:55 PM BUILDINGS AND GROUNDS DIRECTOR Sexual Orientation Straight 05/30/2023 1: 55 PM BUILDINGS AND GROUNDS DIRECTOR Last Filed Vital Signs Vital Sign Reading [...] LIPID PANEL, S Routine 04/24/2023 3:43 PM BUILDINGS AND GROUNDS DIRECTOR Well Adult Examination Normal HPV WITH GENOTYPING, PCR, THINPREP Routine 04/24/2023 3:43 PM BUILDINGS AND GROUNDS DIRECTOR from Last 3 Months or Most Recently [...] APRN, C.N.P. LAB BLOOD ADD-ON Final Result [facility] [address] [place] [address], [place] NPRG [facility] [address] [place] [address] * (ABNORMAL) Lipid Panel (04/24/2023 3:43 PM BUILDINGS AND GROUNDS DIRECTOR) Triglycerides 231(H) mg/dL 04/24/2023 7:31 PM BUILDINGS AND GROUNDS DIRECTOR NPRG Comment: ----REFERENCE VALUE---- Normal: <150 mg/dL Borderline High: 150-199 mg/dL High: 200-499 mg/dL Very High: > or =500 mg/dL Cholesterol, Total 199 mg/dL 2023 7:31 PM BUILDINGS AND GROUNDS DIRECTOR NPRG Comment: ----REFERENCE VALUE---- Desirable: < 200 mg/dL Borderline High: 200 - 239 mg/dL High: > or = 240 mg/dL Cholesterol, LDL, Calculated 113 mg/dL 04/24/2023 7:31 PM BUILDINGS AND GROUNDS DIRECTOR NPRG Comment: ----REFERENCE VALUE---- Desirable: <100 mg/dL Above Desirable: 100-129 mg/dL Borderline High: 130-159 mg/dL High: 160-189 mg/dL Very High: >=190 mg/dL ----ADDITIONAL INFORMATION---- LDL cholesterol calculated using the Parrish/NIH equation. Cholesterol, HDL 46(L) >=50 mg/dL 04/24/19 7:31 PM BUILDINGS AND GROUNDS DIRECTOR NPRG Cholesterol, Non-HDL, Calculated 153 mg/dL 04/24/2023 7:31 PM BUILDINGS AND GROUNDS DIRECTOR NPRG Comment: ----REFERENCE VALUE---- Desirable: <130 mg/dL Above Desirable: 130-159 mg/dL Borderline High: 160-189 mg/dL High: 190-219 mg/dL Very High: > or =220 mg/dL Fasting (8 HR or more) No 04/24/2023 7:09 PM BUILDINGS AND GROUNDS DIRECTOR NPRG Blood (Blood, Venous) 04/24/2023 3:43 PM BUILDINGS AND GROUNDS DIRECTOR 04/24/2023 7:09 PM BUILDINGS AND GROUNDS DIRECTOR Kathy Khan APRN, C.N.P. LAB BLOOD ADD-ON Final Result [facility] [address] [place] [address], [facility] NPRG [facility] [address] [place] [address] * HPV with Genotyping, PCR, ThinPrep (04/24/2023 3:43 PM BUILDINGS AND GROUNDS DIRECTOR) [facility] HPV with Genotyping, ThinPrep, PCR Negative Negative 04/25/2023 3:14 PM BUILDINGS AND GROUNDS DIRECTOR [facility] Comment: Negative for high risk HPV [...] correlated with patient's history, clinical presentation, and [facility]ER cytology report. 04/24/2023 3:43 PM BUILDINGS AND GROUNDS DIRECTOR 04/25/2023 6:11 AM BUILDINGS AND GROUNDS DIRECTOR Kathy Khan APRN, C.N.P. LAB MICROBIOLOGY - GENERAL ORDERABLES Final Result [facility] [address] [place] [address], [facility] [address] [address] from Last 3 Months or Most Recently Relevant to Health Maintenance Insurance BLUE CROSS BLUE SHIELD Advance Directives For more information, please contact: [phone] * Full Code (Latest Code Status on File) Date Activated Date Inactivated Comments 11/16/2023 7:44 AM 11/17/2023 5:49 AM Question Answer Comments Full Code: Not Discussed Due to: Patient not available * Full Code Date Activated Date Inactivated Comments 03/12/2018 12:49 PM 03/12/2018 4:12 PM Question Answer Comments Full Code: Not Discussed Due to: Not medically appropriate Care Teams Educational Director Relationship Specialty Start Date End Date Kathy Khan APRN, C.N.P. [address] [place], [place] [id number] PCP - General Family Medicine 01/18/18
[2024-05-13 05:35] LABS: Troponin I* < 0.01 ng/mL (0.01-0.04)
[2024-05-13 05:38] LABS: D Dimer Quantitative* 0.25 ug/ml (0.00-0.50)
[2024-05-13] MEDS: POTASSIUM CHLORIDE 10 MEQ CAPSULE ER 20 MEQ PO (05:52)
[2024-05-13] MEDS: POTASSIUM CHLORIDE 10 MEQ/100 ML PIGGYBACK 100 MEQ IVPB (05:53)
[2024-05-13 07:19] LABS: Troponin I* < 0.01 ng/mL (0.01-0.04)
== END 2024-05-13 06:51 | disposition home or self-care (01) ==
PROVIDERS: Emergency Provider Family Medicine; PCP Nurse Practitioner Family
DX: E87.6 Hypokalemia (principal); I45.81 Long QT syndrome
CPT/HCPCS: 36415; 80048; 81001; 82077; 83735; 84484; 85025; 85379; 87086; 93005; 94761; 96365; 96375; 99284; 99285; A9270; J2060; J3480; J7030